=== PATIENT | male | born 1995 | race African-American/Black ===

== ENCOUNTER 2018-04-03 03:02 | Emergency (ER) | payer SELFPAY ==
[2018-04-03] MEDS ORDERED: NORMAL SALINE 1000 ML 1,000 ML IV ONE (03:11)
[2018-04-03 03:34] LABS: ABSOLUTE LYMPHOCYTES (AUTO) 1.1 10^3/uL (0.5-4.7); ABSOLUTE MONOCYTES (AUTO) 0.2 10^3/uL (0.1-1.4); ABSOLUTE NEUT (AUTO) 3.1 10^3/uL (1.7-8.2); BASOPHILS % (AUTO) 0.3 % (0-2); EOSINOPHILS % (AUTO) 0.6 % (0-6); HEMATOCRIT 40.8 % (37.9-51.0); HEMOGLOBIN 13.4 g/dL (13.5-17.0); LYMPHOCYTES % (AUTO) 24.3 % (13-45); MEAN CORPUSCULAR HEMOGLOBIN 28.7 pg (27.0-33.4); MEAN CORPUSCULAR HGB CONC 32.8 g/dL (32.0-36.0); MEAN CORPUSCULAR VOLUME 87 fl (80-97); MONOCYTES % (AUTO) 4.3 % (3-13); PLATELET COUNT 200 10^3/uL (150-450); RED BLOOD COUNT 4.68 10^6/uL (4.35-5.55); RED CELL DISTRIBUTION WIDTH 14.1 % (11.5-14.0); SEGMENTED NEUTROPHILS % (AUTO) 70.5 % (42-78); TOTAL CELLS COUNTED % (AUTO) 100 %; WHITE BLOOD COUNT 4.4 10^3/uL (4.0-10.5)
[2018-04-03 03:47] LABS: ALANINE AMINOTRANSFERASE 23 U/L (21-72); ALBUMIN 4.3 g/dL (3.5-5.0); ALKALINE PHOSPHATASE 64 U/L (38-126); ANION GAP 11 (5-19); ASPARTATE AMINO TRANSFERASE 32 U/L (17-59); BILIRUBIN,DIRECT 0.1 mg/dL (0.0-0.4); BILIRUBIN,TOTAL 0.6 mg/dL (0.2-1.3); BLOOD UREA NITROGEN 10 mg/dL (7-20); CALCIUM 8.4 mg/dL (8.4-10.2); CARBON DIOXIDE 28 mmol/L (22-30); CHLORIDE 107 mmol/L (98-107); GLUCOSE 126 mg/dL (75-110); POTASSIUM 3.8 mmol/L (3.6-5.0); SODIUM 145.9 mmol/L (137-145); TOTAL PROTEIN 7.1 g/dL (6.3-8.2)
--- NOTE | 2018-04-03 05:14 | RADIOLOGY REPORT (SQ) ---
EXAM DESCRIPTION: CT HEAD WITHOUT IV CONTRAST COMPLETED DATE/TME: 04/03/2018 03:11 CLINICAL HISTORY: 22 years Male, etoh, possible trauma COMPARISON: None. TECHNIQUE: No contrast. Coronal and sagittal reformat. This exam was performed according to our departmental dose-optimization program, which includes automated exposure control, adjustment of the mA and/or kV according to patient size and/or use of iterative reconstruction technique. FINDINGS: No hemorrhage or infarct. No mass, mass effect, or midline shift. Brain and extra-axial structures appear intact. IMPRESSION: Normal CT of the head.
--- NOTE | 2018-04-03 05:14 | RADIOLOGY REPORT (SQ) ---
EXAM DESCRIPTION: CT CERVICAL SPINE WITHOUT IV CONTRAST COMPLETED DATE/TME: 04/03/2018 03:11 CLINICAL HISTORY: 22 years Male, etoh, possible trauma Comparison: None. Technique: No contrast. Coronal and sagittal reformat. 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 Mild disc desiccation between C4 and C6. Normal alignment. Normal curvature. No acute fracture. Normal vertebral heights. Partially imaged nuchal soft tissues, inferior cranium, and upper thorax appear otherwise grossly intact. 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 No acute findings.
--- NOTE | 2018-04-03 06:37 | ER Document Report ---
ED General - General Chief Complaint: ETOH Abuse Stated Complaint: ETOH Time Seen by Provider: 04/03/18 03:11 Notes: Patient is a 22-year-old male presents to the emergency department alcohol intoxication. Patient was brought in by EMS after he was found lying on the sidewalk. EMS states the patient was covered and vomiting and actively vomiting upon their arrival. EMS states the patient is only responsive to painful stimuli. EMS states that the people with the patient on the sidewalk also appear to be heavily intoxicated and it is unsure if the patient had fallen or had sustained any trauma. Patient's friends who Also appeared intoxicated stated to EMS that all the ports were given to include the patient was alcohol this evening. Patient is responsive to painful stimuli but only moans and pushes staff away. He will not answer questions asked of him. Patient is covered in vomit and a small heavily of EtOH. Past Medical History - General Information source: Patient, Emergency Med Personnel - Social History Smoking Status: Unknown if Ever Smoked Family History: Reviewed & Not Pertinent Patient has suicidal ideation: No Patient has homicidal ideation: No Renal/ Medical History: Denies: Hx Peritoneal Dialysis Review of Systems - Review of Systems Constitutional: No symptoms reported EENT: No symptoms reported Cardiovascular: No symptoms reported Respiratory: No symptoms reported Gastrointestinal: Vomiting Genitourinary: No symptoms reported Male Genitourinary: No symptoms reported Musculoskeletal: No symptoms reported Skin: No symptoms reported Hematologic/Lymphatic: No symptoms reported Neurological/Psychological: See HPI Physical Exam - Vital signs Vitals: Temp Pulse Resp BP Pulse Ox 98.7 F 72 16 102/63 98 04/03/18 03:02 04/03/18 03:02 04/03/18 03:02 04/03/18 03:02 04/03/18 03:02 - Notes Notes: GENERAL: Responds to painful stimuli only HEAD: Normocephalic, atraumatic. EYES: Pupils equal, round, and reactive to light. Extraocular movements intact. ENT: Oral mucosa moist, tongue midline. Nares patent, no nasal septal hematoma, TM's intact, no hemotympanum noted bilaterally NECK: Full range of motion. Supple. Trachea midline. LUNGS: Clear to auscultation bilaterally, no wheezes, rales, or rhonchi. No respiratory distress. HEART: Regular rate and rhythm. No murmur ABDOMEN: Soft, non-tender. Non-distended. Bowel sounds present in all 4 quad rants. EXTREMITIES: Moves all 4 extremities spontaneously but not on command. No edema, normal radial and dorsalis pedis pulses bilaterally. No cyanosis. BACK: no cervical, thoracic, lumbar midline tenderness. normal distal neurovascular exam. SKIN: Warm, dry, normal turgor. No rashes or lesions noted. Course - Re-evaluation Re-evalutation: Initial physical exam reveals no signs of outward trauma. Head CT and cervical spine CT ordered for questionable trauma, patient only responsive to painful stimuli. Patient CT head shows no signs of intracranial bleeding. Patient CT neck shows a chronic nondisplaced posttraumatic or developmental defect of the anterior C1 ring. 04/03/18 06:35 At this time patient is clinically sober. He has urinated on himself multiple times we have unable to get a urine sample. He is conscious alert and oriented x4 with a GCS of 15. He is currently denying any pain stating all he did last night was partake in alcoholic beverages. Patient is denying any illicit drug use. Patient is wishing for discharge at this time. Patient is stable. Part of HPI and physical exam were obtained once patient was clinically sober and able to answer questions. - Vital Signs Vital signs: Temp Pulse Resp BP Pulse Ox 98.7 F 72 16 100/61 100 04/03/18 03:02 04/03/18 03:02 04/03/18 03:02 04/03/18 04:00 04/03/18 04:01 - Laboratory Result Diagrams: 04/03/18 03:20 04/03/18 03:20 Laboratory results interpreted by me: 04/03/18 04/03/18 03:20 03:20 Hgb 13.4 L RDW 14.1 H Sodium 145.9 H Glucose 126 H Discharge - Discharge Clinical Impression: Alcohol intoxication Qualifiers: Complication of substance-induced condition: uncomplicated Qualified Code(s): F10.920 - Alcohol use, unspecified with intoxication, uncomplicated Condition: Stable Disposition: HOME, SELF-CARE Instructions: Acute Alcohol Intoxication ([facility]) Additional Instructions: As we discussed you have been seen and treated in the emergency department for an acute alcohol intoxication. You should refrain from drinking alcoholic beverages to that excess. You should follow-up with your primary care provider in the next 24-48 hours and you should return to the emergency room should you have any other concerning symptoms.
[2018-04-03 07:51] VITALS: BP 97/47
== END 2018-04-03 07:51 | disposition home or self-care (01) ==
LOC: ER 03:02
DX: F10.929 Alcohol use, unspecified with intoxication, unspecified (principal); R11.10 Vomiting, unspecified; R40.4 Transient alteration of awareness
CPT/HCPCS: 99284; 96360; 36415; 85025; 80053; 70450; 72125; J7030

== ENCOUNTER 2019-07-24 13:49 | Emergency (ER) | payer SELFPAY ==
[2019-07-24] MEDS ORDERED: NORMAL SALINE 1000 ML 1,000 ML IV ONE (14:09)
[2019-07-24] MEDS ORDERED: FAMOTIDINE INJ/PF 20 MG/2 ML SDV IV ONE (14:09)
[2019-07-24] MEDS ORDERED: ONDANSETRON HCL INJ/PF 4 MG/2 ML SDV IV ONE (14:09)
--- NOTE | 2019-07-24 14:15 | ER Document Report ---
ED GI/ - General Chief Complaint: Abdominal Pain Stated Complaint: ABDOMINAL PAIN Time Seen by Provider: 07/24/19 14:05 Mode of Arrival: Ambulatory Information source: Patient Notes: Patient is an otherwise healthy 24-year-old male presenting to the emergency department chief complaint of vomiting and abdominal pain. Patient reports symptoms started this morning. He points to his epigastric area when describing the abdominal pain. He states he drank 3 shots of alcohol last night. He states this was nothing new, he has had this type of alcohol before. He denies any fever or chills, denies diarrhea. - Related Data Allergies/Adverse Reactions: No Known Allergies Allergy (Verified 07/24/19 14:46) Past Medical History - General Information source: Patient - Social History Smoking Status: Current Every Day Smoker Frequency of alcohol use: Occasional Drug Abuse: Marijuana Family History: Reviewed & Not Pertinent - Medical History Medical History: Negative Renal/ Medical History: Denies: Hx Peritoneal Dialysis Surgical Hx: Negative - Immunizations Immunizations up to date: Yes Review of Systems - Review of Systems Constitutional: denies: Chills, Fever Gastrointestinal: Abdominal pain, Vomiting -: Yes All other systems reviewed and negative Physical Exam - Vital signs Vitals: Temp Pulse Resp BP Pulse Ox 97.8 F 58 L 20 137/76 H 97 07/24/19 13:53 07/24/19 13:53 07/24/19 13:53 07/24/19 13:53 07/24/19 13:53 - Notes Notes: PHYSICAL EXAMINATION: GENERAL: Well-appearing, well-nourished and in no acute distress. HEAD: Atraumatic, normocephalic. EYES: Pupils equal round and reactive to light, extraocular movements intact, sclera anicteric, conjunctiva are normal. ENT: Nares patent, oropharynx clear without exudates. Moist mucous membranes. NECK: Normal range of motion, supple without lymphadenopathy LUNGS: Breath sounds clear to auscultation bilaterally and equal. No wheezes rales or rhonchi. HEART: Regular rate and rhythm without murmurs ABDOMEN: Soft, nondistended abdomen. Epigastric tenderness with palpation. No guarding, no rebound. No masses appreciated. Musculoskeletal: Normal range of motion, no pitting or edema. No cyanosis. NEUROLOGICAL: Cranial nerves grossly intact. Normal speech, normal gait. Normal sensory, motor exams PSYCH: Normal mood, normal affect. SKIN: Warm, Dry, normal turgor, no rashes or lesions noted. Course - Re-evaluation Re-evalutation: 07/24/19 14:15 Patient appears well, nontoxic. Likely gastritis. Will obtain labs, give IV Pepcid, IV Zofran and IV fluids and reevaluate. - Vital Signs Vital signs: Temp Pulse Resp BP Pulse Ox 97.8 F 58 L 20 137/76 H 97 07/24/19 14:09 07/24/19 13:53 07/24/19 13:53 07/24/19 13:53 07/24/19 13:53 - Laboratory Result Diagrams: 07/24/19 14:20 07/24/19 14:20 Laboratory results interpreted by me: 07/24/19 07/24/19 07/24/19 14:20 14:20 16:00 WBC 11.3 H Seg Neuts % (Manual) 93 H Lymphocytes % (Manual) 4 L Abs Neuts (Manual) 10.5 H Glucose 119 H Urine Protein 100 H Discharge - Discharge Clinical Impression: Gastritis Qualifiers: Gastritis type: unspecified gastritis Chronicity: acute Gastritis bleeding: without bleeding Qualified Code(s): K29.00 - Acute gastritis without bleeding Condition: Stable Disposition: HOME, SELF-CARE Additional Instructions: Your symptoms appear to be most consistent with stomach or upper intestinal irritation. Please begin taking famotidine 40 mg in the morning and 40 mg at night. This medicine can be purchased directly [id number]. You may also take medicine such as Pepto-Bismol or Tums to assist with your pain. Please return to emergency department immediately if you have worsening of your pain, shortness of breath, vomiting, become unable to exert yourself due to pain or difficulty breathing, you pass out, or have any pain that radiates into your arms, jaw, or back. Please also return if you have any additional symptoms that are concerning to you. Try to avoid smoking, sodas, tea, coffee, alcohol, spicy foods, and acidic foods such as citrus fruits, tomato based products, berries, and most fruit juices. Prescriptions: Sucralfate [Carafate 1 gm Tablet] 1 gm PO ACHS #60 tablet Forms: Return to Work
[2019-07-24 14:36] LABS: HEMATOCRIT 40.5 % (37.9-51.0); HEMOGLOBIN 13.6 g/dL (13.5-17.0); MEAN CORPUSCULAR HEMOGLOBIN 28.8 pg (27.0-33.4); MEAN CORPUSCULAR HGB CONC 33.6 g/dL (32.0-36.0); MEAN CORPUSCULAR VOLUME 86 fl (80-97); PLATELET COUNT 245 10^3/uL (150-450); RED BLOOD COUNT 4.72 10^6/uL (4.35-5.55); RED CELL DISTRIBUTION WIDTH 13.8 % (11.5-14.0); WHITE BLOOD COUNT 11.3 10^3/uL (4.0-10.5)
[2019-07-24 14:52] LABS: ALBUMIN 4.4 g/dL (3.5-5.0); ALKALINE PHOSPHATASE 55 U/L (38-126); ANION GAP 7 (5-19); ASPARTATE AMINO TRANSFERASE 28 U/L (17-59); BILIRUBIN,TOTAL 0.8 mg/dL (0.2-1.3); BLOOD UREA NITROGEN 11 mg/dL (7-20); CALCIUM 9.2 mg/dL (8.4-10.2); CARBON DIOXIDE 26 mmol/L (22-30); CHLORIDE 105 mmol/L (98-107); GLUCOSE 119 mg/dL (75-110); POTASSIUM 4.5 mmol/L (3.6-5.0); TOTAL PROTEIN 7.5 g/dL (6.3-8.2)
[2019-07-24 14:56] LABS: ABSOLUTE LYMPHOCYTES# (MANUAL) 0.5 10^3/uL (0.5-4.7); ABSOLUTE MONOCYTES # (MANUAL) 0.3 10^3/uL (0.1-1.4); BASOPHILS % (MANUAL) 0 % (0-2); EOSINOPHILS % (MANUAL) 0 % (0-6); LYMPHOCYTES % (MANUAL) 4 % (13-45); MONOCYTES % (MANUAL) 3 % (3-13); SEGMENTED NEUTROPHILS % (MAN) 93 % (42-78); TOTAL CELLS COUNTED 100
[2019-07-24 14:57] LABS: TOXIC GRANULATION 1+; TOXIC VACUOLATION PRESENT
[2019-07-24 14:58] LABS: PLATELET COMMENT ADEQUATE
[2019-07-24 16:26] LABS: APPEARANCE,URINE CLEAR; BILIRUBIN,URINE NEGATIVE (NEGATIVE); COLOR,URINE YELLOW; GLUCOSE, URINE NEGATIVE (NEGATIVE); KETONES,URINE NEGATIVE (NEGATIVE); LEUKOCYTE ESTERASE,URINE NEGATIVE (NEGATIVE); NITRITE,URINE NEGATIVE (NEGATIVE); PROTEIN,URINE 100 mg/dL (NEGATIVE); URINE SPECIFIC GRAVITY 1.019; UROBILINOGEN,URINE NEGATIVE mg/dL (<2.0)
[2019-07-24] MEDS ORDERED: SUCRALFATE 1 GM TABLET PO ONE (16:41)
[2019-07-24] MEDS ORDERED: METOCLOPRAMIDE HCL INJ/PF 10 MG/2 ML SDV IV ONE (16:41)
--- NOTE | 2019-07-24 16:57 | RADIOLOGY REPORT (SQ) ---
EXAM DESCRIPTION: CHEST 2 VIEWS IMAGES COMPLETED DATE/TIME: 07/24/2019 4:47 pm REASON FOR STUDY: pain with deep breath COMPARISON: None. TECHNIQUE: Frontal and lateral radiographic views of the chest acquired. NUMBER OF VIEWS: Two view. LIMITATIONS: None. FINDINGS: LUNGS AND PLEURA: No pneumothorax. No consolidation or pleural effusion. MEDIASTINUM AND HILAR STRUCTURES: No contour abnormalities. HEART AND VASCULAR STRUCTURES: Heart normal size. BONES: No acute findings. HARDWARE: None in the chest. OTHER: No other significant finding. IMPRESSION: NO ACUTE FINDINGS. TECHNICAL DOCUMENTATION: JOB ID: [id number] [id number] 2010 [employer]- All Rights Reserved Reading location - IP/workstation name: [employer]
[2019-07-24 17:42] VITALS: BP 121/55
== END 2019-07-24 17:44 | disposition home or self-care (01) ==
LOC: ER 13:49
DX: K29.00 Acute gastritis without bleeding (principal); R10.9 Unspecified abdominal pain; R11.10 Vomiting, unspecified; R10.13 Epigastric pain; F17.200 Nicotine dependence, unspecified, uncomplicated
CPT/HCPCS: 99284; 96361; 96374; 96375; 36415; 83690; 85025; 80053; 81001; 71046; J2765; J2405; J7030; S0028